=== PATIENT | male | born 1995 | race Two or more races ===

== ENCOUNTER 2021-10-29 16:00 | Emergency (ER) | payer OTHER ==
[~2021-10-29] VITALS: Ht 182.9 cm; Wt 93.2 kg
[2021-10-29] MEDS ORDERED: proparacaine 0.5% ophthalmic drops 15ml EACHEYE ONE (16:10)
[2021-10-29] MEDS ORDERED: TOBR5DRO2 RIGHTEYE (16:16)
== END 2021-10-29 16:21 | disposition home or self-care (01) ==
LOC: ER 16:00
DX: S05.01XA Injury of conjunctiva and corneal abrasion without foreign body, right eye, initial encounter (principal); H57.11 Ocular pain, right eye; Z79.2 Long term (current) use of antibiotics; X58.XXXA Exposure to other specified factors, initial encounter; Y93.9 Activity, unspecified; Y92.89 Other specified places as the place of occurrence of the external cause; Y99.8 Other external cause status
CPT/HCPCS: 99283